=== PATIENT | female | born 1970 | race African-American/Black ===

== ENCOUNTER 2016-08-07 09:41 | Emergency (ER) | payer BC ==
[2016-08-07 09:56] VITALS: BP 141/85; PULSE 85; TEMP 99; BMI 34.9
[2016-08-07] MEDS ORDERED: IBUPROFEN 400 MG TABLET (FP) PO ONE ×2 (10:13→10:16)
--- NOTE | 2016-08-07 10:13 | PDOC ---
History of Present Illness - General Chief Complaint: Pain Stated Complaint: RT FLANK PAIN Time Seen by Provider: 08/07/16 09:47 History Source: Patient, Old Records Exam Limitations: No Limitations - History of Present Illness Initial Comments: 08/07/16 10:17 45 year old female with no significant PMHx presents to the ED with c/o several week h/o intermittent right-sided hip pain described as "annoying", worse with movement. The patient did not take any medication for the pain. She denies abdominal pain, nausea, vomiting, complaints, vaginal bleeding or discharge. The patient says that she is going to the [facility] at the end of the week and wanted to get this issue addressed before she went away. LMP: unknown Past History - Past Medical History Allergies/Adverse Reactions: Allergies Allergy/AdvReac Type Severity Reaction Status Date / Time No Known Allergies Allergy Verified 08/07/16 09:43 Home Medications: Ambulatory Orders Ibuprofen 400 mg PO QID 08/07/16 Anemia: No Asthma: No Cancer: No Cardiac Disorders: No Hx Myocardial Infarction: No CVA: No COPD: No CHF: No DVT: No Dementia: No Diabetes: No Dialysis: No GI Disorders: No Disorders: Yes ([employer]) HTN: No Hypercholesterolemia: No HIV: No Kidney Stones: No Liver Disease: No Psychiatric Problems: No Suicide Attempt (Hx): No Seizures: No Thyroid Disease: No Lung CA: No - Psycho/Social/Smoking Cessation Hx Anxiety: No Suicidal Ideation: No Smoking History: Current every day smoker Number of Cigarettes Smoked Daily: 10 Information on smoking cessation initiated: No Hx Alcohol Use: No Drug/Substance Use Hx: No Substance Use Type: None Review of Systems - Review of Systems Able to Perform ROS?: Yes Is the patient limited Hebrew proficient: No Constitutional: No: Symptoms Reported HEENTM: No: Symptoms Reported Respiratory: No: Symptoms reported Cardiac (ROS): No: Symptoms Reported ABD/GI: No: Symptoms Reported : No: Symptoms Reported Musculoskeletal: Yes: See HPI Integumentary: No: Symptoms Reported Neurological: No: Symptoms reported *Physical Exam - Vital Signs Last Vital Signs Temp Pulse Resp BP Pulse Ox 99 F 85 16 141/85 100 08/07/16 09:51 08/07/16 09:51 08/07/16 09:51 08/07/16 09:51 08/07/16 09:51 - Physical Exam Comments: 08/07/16 10:24 GENERAL: Well developed, well nourished. Awake and alert. No acute distress. NECK: Supple. Full ROM. No JVD. No lymphadenopathy. CARDIOVASCULAR: Regular rate and rhythm. No murmurs, rubs, or gallops. Distal pulses are 2+ and symmetric. PULMONARY: No evidence of respiratory distress. Lungs clear to auscultation bilaterally. No wheezing, rales or rhonchi. ABDOMINAL: Soft. Non-tender. Non-distended. No rebound or guarding. No organomegaly. Normoactive bowel sounds. MUSCULOSKELETAL Normal range of motion at all joints. No bony deformities or tenderness. No CVA tenderness. EXTREMITIES: No cyanosis. No clubbing. No edema. No calf tenderness. SKIN: Warm and dry. Normal capillary refill. No rashes. No jaundice. NEUROLOGICAL: Alert, awake, appropriate. Cranial nerves 2-12 intact. Grossly non-focal exam. PSYCHIATRIC: Cooperative. Good eye contact. Appropriate mood and affect. Medical Decision Making - Medical Decision Making 08/07/16 10:26 45 y/o female with no PNHx presents to the ED with right hip pain. DDx includes but is not limited to: musculoskeletal pain, UTI, renal colic ( unlikely given her clinical presentation). Plan: 1. urine analysis and urine 2. Pain management 3. Observe and re-evaluate 08/07/16 10:42 Addendum: The patient received Ibuprofen and is feeling improved. The urinalysis does not appear infected as there were no WBC's, nitrites or LE noted. The results of the u/a and urine were discussed with the patient. I have advised her to follow-up with her primary care physician and that she should take ibuprfen as needed for the pain. She may return to the ED if her symptoms persist, worsen or new symptoms arise. *DC/Admit/Observation/Transfer Diagnosis at time of Disposition: Right hip pain - Discharge Dispostion Disposition: HOME Condition at time of disposition: Stable Admit: No - Patient Instructions Printed Discharge Instructions: DI for Muscle Strain Additional Instructions: You may take ibuprofen 800mg every 6-8 hours as needed for the pain. Please follow-up with your primary care physician within 2 weeks. You may return to the emergency department if your symptoms persist, worsen or new symptoms arise.
[2016-08-07 10:27] LABS: PH,URINE 5.5 (4.5-8); URINE APPEARANCE Clear; URINE BILIRUBIN Negative (NEGATIVE); URINE GLUCOSE (UA) Negative (NEGATIVE); URINE KETONE Negative (NEGATIVE); URINE LEUK ESTERASE Negative (NEGATIVE); URINE NITRITE Negative (NEGATIVE); URINE PROTEIN Negative (NEGATIVE); URINE UROBILINOGEN 0.2 E.U/dl (0.2-1.0)
[2016-08-07 10:37] LABS: URINE BLOOD TRACE (NEGATIVE); URINE COLOR YELLOW
[2016-08-07 12:50] LABS: URINE RBC 0-3 /hpf (0-3); URINE WBC 0-1 (3-5)
== END 2016-08-07 10:51 | disposition home or self-care (01) ==
LOC: FER 09:41
DX: M25.551 Pain in right hip (principal); F17.210 Nicotine dependence, cigarettes, uncomplicated
CPT/HCPCS: 81003; 81015; 84703; 99282-25